=== PATIENT | male | born 1955 | race Caucasian/White ===

== ENCOUNTER 2016-04-16 16:20 | Inpatient (IN) | payer MEDICAID ==
[2016-04-16 17:27] VITALS: BP 126/96
[2016-04-16] MEDS ORDERED: Maalox 30 mL Cup PO PRN (20:55)
[2016-04-16] MEDS ORDERED: guaiFENesin 200 MG/10 ML UDC PO PRN (20:55)
[2016-04-16] MEDS ORDERED: INSULIN ASPART SLIDING SCALE 100 UNITS/ML UNIT SUBQ SCH (21:00)
[2016-04-16] MEDS: Ipratropium Neb 0.5 mg/2.5 mL UD HHN SCH (22:14)
[2016-04-16] MEDS: Albuterol Nebulizer 2.5mg/3mL HHN SCH (22:14)
[2016-04-16] MEDS: INSULIN ASPART, RECOMBINANT 100 UNITS/ML SUBQ SCH (22:39)
[2016-04-16 23:06] LABS: URINE BILIRUBIN NEGATIVE (NEGATIVE); URINE BLOOD NEGATIVE (NEGATIVE); URINE COLOR YELLOW; URINE GLUCOSE (UA) 500 mg/dL (NEGATIVE); URINE KETONE TRACE mg/dL (NEGATIVE); URINE PROTEIN NEGATIVE (NEGATIVE); URINE UROBILINOGEN 0.2 E.U./dL (0.2 - 1.0)
[2016-04-16 23:07] LABS: URINE BACTERIA NONE SEEN /hpf (NONE SEEN); URINE EPITHELIAL CELLS OCCASIONAL /lpf (FEW); URINE RBC 0-2 /hpf (0-5); URINE WBC 0-2 /hpf (0-5)
[2016-04-17 05:33] LABS: % BASOPHILS 0.9 % (0.0-2.0); % EOSINOPHILS 1.1 % (0.0-5.0); % LYMPHOCYTES 34.2 % (20.0-50.0); % MONOCYTES 7.7 % (2.0-10.0); % NEUTROPHILS 56.1 % (40.0-80.0); HEMATOCRIT 42.4 % (39.0-49.0); HEMOGLOBIN 14.8 gm/dL (13.2-17.3); MEAN CELL VOLUME 92.3 fl (80-99); MEAN CORPUSCULAR HEMOGLOBIN 32.1 pg (26.0-30.0); MEAN CORPUSCULAR HGB CONC 34.8 pg (28.0-36.0); MEAN PLATELET VOLUME 8.8 fl; NEUTROPHILE ABSOLUTE 5.5 Th/cmm (1.8-8.0); PLATELET COUNT 268 Th/cmm (150-400); RED CELL DISTRIBUTION WIDTH 12.2 % (11.5-20.0); WHITE BLOOD COUNT 9.9 Th/cmm (4.8-10.8)
[2016-04-17 05:43] LABS: ALKALINE PHOSPHATASE 104 U/L (34-104); BILIRUBIN,TOTAL 0.9 mg/dL (0.3-1.0); BUN - UREA NITROGEN 18 mg/dL (7-25); BUN/CREATININE RATIO 22.5; CALCIUM SERUM 8.6 mg/dL (8.6-10.3); CARBON DIOXIDE 27.6 mEq/L (21.0-31.0); CHLORIDE 97 mEq/L (98-107); CREATININE - SERUM 0.8 mg/dL (0.7-1.3); GLUCOSE 345 mg/dL (70-105); POTASSIUM SERUM 3.6 mEq/L (3.5-5.1); SGOT 201 U/L (13-39); SGPT/ALT 366 U/L (7-52); SODIUM SERUM 130 mEq/L (136-145)
[2016-04-17 05:50] LABS: BNP 5.9 pg/mL (5.0-100.0)
[2016-04-17] MEDS: INSULIN ASPART, RECOMBINANT 100 UNITS/ML SUBQ SCH ×4 (06:40→20:19)
[2016-04-17] MEDS: Albuterol Nebulizer 2.5mg/3mL HHN SCH ×4 (07:32→21:49)
[2016-04-17] MEDS: Ipratropium Neb 0.5 mg/2.5 mL UD HHN SCH ×4 (07:32→21:49)
--- NOTE | 2016-04-17 09:40 | Diagnostic Imaging Report ---
CHEST X-RAY: AP view INDICATION: Pneumonia COMPARISON: None FINDINGS: An azygos fissure is noted. No focal consolidation pleural effusions. Borderline prominent heart is noted. Osseous structures are intact. IMPRESSION: No focal airspace consolidation identified.
--- NOTE | 2016-04-17 12:48 | Internal Medicine Prog Note ---
Internal Medicine Subjective - Subjective Service Date: 04/17/16 ([facility] dictated [id number]) Internal Medicine Objective - Results Result Diagrams: 04/17/16 04:50 04/17/16 04:50 Recent Labs: Laboratory Last Values WBC 9.9 Th/cmm (4.8-10.8) 04/17/16 04:50 RBC 4.60 Mil/cmm (4.30-5.70) 04/17/16 04:50 Hgb 14.8 gm/dL (13.2-17.3) 04/17/16 04:50 Hct 42.4 % (39.0-49.0) 04/17/16 04:50 MCV 92.3 fl (80-99) 04/17/16 04:50 MCH 32.1 pg (26.0-30.0) H 04/17/16 04:50 MCHC Differential 34.8 pg (28.0-36.0) 04/17/16 04:50 RDW 12.2 % (11.5-20.0) 04/17/16 04:50 Plt Count 268 Th/cmm (150-400) 04/17/16 04:50 MPV 8.8 fl 04/17/16 04:50 Neutrophils % 56.1 % (40.0-80.0) 04/17/16 04:50 Lymphocytes % 34.2 % (20.0-50.0) 04/17/16 04:50 Monocytes % 7.7 % (2.0-10.0) 04/17/16 04:50 Eosinophils % 1.1 % (0.0-5.0) 04/17/16 04:50 Basophils % 0.9 % (0.0-2.0) 04/17/16 04:50 Sodium 130 mEq/L (136-145) L 04/17/16 04:50 Potassium 3.6 mEq/L (3.5-5.1) 04/17/16 04:50 Chloride 97 mEq/L (98-107) L 04/17/16 04:50 Carbon Dioxide 27.6 mEq/L (21.0-31.0) 04/17/16 04:50 Anion Gap 9.0 (7.0-16.0) 04/17/16 04:50 BUN 18 mg/dL (7-25) 04/17/16 04:50 Creatinine 0.8 mg/dL (0.7-1.3) 04/17/16 04:50 Est GFR ( Amer) > 60.0 ml/min 04/17/16 04:50 Est GFR (Non-Af Amer) > 60.0 ml/min 04/17/16 04:50 BUN/Creatinine Ratio 22.5 04/17/16 04:50 Glucose 345 mg/dL (70-105) H 04/17/16 04:50 POC Glucose 369 MG/DL (70 - 105) H 04/17/16 05:50 Hemoglobin A1c % 17.0 % (4.0-6.0) H 04/16/16 18:09 Calcium 8.6 mg/dL (8.6-10.3) 04/17/16 04:50 Magnesium 2.0 mg/dL (1.9-2.7) 04/17/16 04:50 Total Bilirubin 0.9 mg/dL (0.3-1.0) 04/17/16 04:50 AST 201 U/L (13-39) H 04/17/16 04:50 ALT 366 U/L (7-52) H 04/17/16 04:50 Alkaline Phosphatase 104 U/L (34-104) 04/17/16 04:50 B-Natriuretic Peptide 5.9 pg/mL (5.0-100.0) 04/17/16 04:50 Total Protein 6.2 gm/dL (6.0-8.3) 04/17/16 04:50 Albumin 3.1 gm/dL (4.2-5.5) L 04/17/16 04:50 Globulin 3.1 gm/dL 04/17/16 04:50 Albumin/Globulin Ratio 1.0 (1.0-1.8) 04/17/16 04:50 TSH 1.33 uIU/ml (0.34-5.60) 04/17/16 04:50 Urine Source CLEAN C 04/16/16 22:30 Urine Color YELLOW 04/16/16 22:30 Urine Clarity CLEAR (CLEAR) 04/16/16 22:30 Urine pH 7.0 04/16/16 22:30 Ur Specific [place] 1.015 (1.005-1.030) 04/16/16 22:30 Urine Protein NEGATIVE mg/dL (NEGATIVE) 04/16/16 22:30 Urine Glucose (UA) 500 mg/dL (NEGATIVE) H 04/16/16 22:30 Urine Ketones TRACE mg/dL (NEGATIVE) 04/16/16 22:30 Urine Blood NEGATIVE (NEGATIVE) 04/16/16 22:30 Urine Nitrate NEGATIVE (NEGATIVE) 04/16/16 22:30 Urine Bilirubin NEGATIVE (NEGATIVE) 04/16/16 22:30 Urine Urobilinogen 0.2 E.U./dL (0.2 - 1.0) 04/16/16 22:30 Ur Leukocyte Esterase NEGATIVE (NEGATIVE) 04/16/16 22:30 Urine RBC 0-2 /hpf (0-5) H 04/16/16 22:30 Urine WBC 0-2 /hpf (0-5) 04/16/16 22:30 Ur Epithelial Cells OCCASIONAL /lpf (FEW) 04/16/16 22:30 Urine Bacteria NONE SEEN /hpf (NONE SEEN) 04/16/16 22:30 - Physical Exam Vitals and I&O: Vital Signs Temp 98.7 F 04/17/16 08:00 Pulse 88 04/17/16 11:22 Resp 20 04/17/16 11:22 BP 150/90 04/17/16 09:01 Pulse Ox 94 04/17/16 11:22 Intake & Output 04/16/16 04/17/16 04/17/16 18:59 06:59 18:59 Intake Total 1500 400 Output Total 2000 Balance -500 400 Weight (lbs) 258 lb Intake: Oral 1500 400 Output: Urine 2000 Other: # Bowel Movements 0 Active Medications: Current Medications Acetaminophen (Tylenol) 650 mg PO Q4HR PRN PRN Reason: Pain or Fever >101 Stop: 06/15/16 20:54 Al Hydrox/Mg Hydrox/Simethicone (Maalox) 30 ml PO Q6HR PRN PRN Reason: Constipation Stop: 06/15/16 20:54 Albuterol Sulfate (Albuterol 2.5mg/3ml Neb Ud) 2.5 mg HHN QIDRT [facility] Stop: 06/15/16 20:59 Last Admin: 04/17/16 11:21 Dose: 2.5 mg Aspirin (Ecotrin) 81 mg PO DAILY [facility] Stop: 06/16/16 08:59 Last Admin: 04/17/16 08:59 Dose: 81 mg Carvedilol (Coreg) 3.125 mg PO BID [facility] Stop: 06/16/16 08:59 Last Admin: 04/17/16 08:59 Dose: 3.125 mg Clonidine HCl (Catapres) 0.1 mg PO Q6HR PRN PRN Reason: SBP GREATER THAN 160 Stop: 06/15/16 20:54 Furosemide (Lasix) 20 mg PO DAILY [facility] Stop: 06/16/16 08:59 Last Admin: 04/17/16 09:00 Dose: 20 mg Glipizide (Glucotrol) 5 mg PO BID [facility] Stop: 06/16/16 08:59 Last Admin: 04/17/16 09:01 Dose: 5 mg Guaifenesin (Robitussin) 200 mg PO Q4HR PRN PRN Reason: Cough or Congestion Stop: 06/15/16 20:54 Heparin Sodium (Porcine) (Heparin) 5,000 units SUBQ Q12HR [facility] Stop: 06/15/16 20:59 Last Admin: 04/17/16 08:59 Dose: 5,000 units Insulin Aspart (Novolog) 0 units SUBQ ACHS [facility] PRN Reason: Protocol Stop: 06/15/16 20:59 Last Admin: 04/17/16 06:40 Dose: 8 units Ipratropium [place] (Atrovent Neb 0.5mg/2.5ml) 0.5 mg HHN QIDRT [facility] Stop: 06/15/16 20:59 Last Admin: 04/17/16 11:21 Dose: 0.5 mg Lisinopril (Zestril) 5 mg PO DAILY [facility] Stop: 06/16/16 08:59 Last Admin: 04/17/16 09:01 Dose: 5 mg Meclizine HCl (Antivert) 25 mg PO DAILY PRN PRN Reason: Nausea / Vomiting Stop: 06/15/16 20:54 Metformin HCl (Glucophage) 850 mg PO BIDWM [facility] Stop: 06/16/16 07:59 Last Admin: 04/17/16 08:30 Dose: 850 mg Ondansetron HCl (Zofran) 4 mg IV Q8H PRN PRN Reason: Nausea / Vomiting Stop: 06/15/16 20:54 Zolpidem Tartrate (Ambien) 10 mg PO HS PRN PRN Reason: Insomnia Stop: 06/15/16 20:54 Internal Medicine Assmt/Plan - Assessment Assessment: UNCONTROLLED DIABETES COPD EXACERBATION CHF MORBID OBESITY
[2016-04-17] MEDS ORDERED: VTE Chemical Prophylaxis Screen/Admission MC PRN (13:30)
--- NOTE | 2016-04-17 13:56 | History & Physical ---
CHIEF COMPLAINT: Shortness of breath. HISTORY OF PRESENT ILLNESS: This is a 60-year-old male who is a direct admission from [facility]. According to the patient, he has been having a 2-day history of shortness of breath associated with productive cough. The patient states that lately he has been drinking a lot of fluids. The patient states that he was also seen by his PCP last week and was also referred to [facility] ER. Due to insurance purposes, the patient is now here at [facility] to be treated. PAST MEDICAL HISTORY: Diabetes, hep C and CHF. PAST SURGICAL HISTORY: None per patient. ALLERGIES: No drug allergies. SOCIAL HISTORY: The patient states that he smokes tobacco occasionally. Denies any alcohol. Denies any illicit drug usage. REVIEW OF SYSTEMS: GENERAL: Denies any fever, any chills. CARDIOVASCULAR: Denies any chest pain or any palpitations. RESPIRATORY: Denies any shortness of breath, but admits to productive cough, but denies any wheezing. SKIN: Intact, warm and dry to touch. GASTROINTESTINAL: Denies any nausea, vomiting or any diarrhea, abdominal pain. GENITOURINARY: He denies any dysuria. All other systems are reviewed by me and are negative. PHYSICAL EXAMINATION: GENERAL: The patient is morbidly obese, awake and alert in no apparent distress. VITAL SIGNS: Temperature 98.7, heart rate 91, blood pressure 150/90, respirations 18, O2 92%. HEENT: Head; normocephalic, atraumatic. NECK: Supple. No mass. LUNGS: Scattered rhonchi bilaterally upon auscultation. HEART: Regular rhythm. No murmurs or gallops. ABDOMEN: Soft, nontender, nondistended. Positive bowel sounds in all 4 quadrants. LABORATORY DATA: WBC 9.9, H and H ____ and 42.4, platelets 268. Sodium 130, potassium 3.6, chloride 97, BUN 18, creatinine 0.8. Glucose 345. Hemoglobin A1c is 17.0. The patient had a urinalysis done and it was negative for any UTI. DIAGNOTICS: The patient had a chest x-ray done and the impression is no focal airspace consolidation identified. ASSESSMENT: Uncontrolled diabetes, chronic obstructive pulmonary disease exacerbation, hyponatremia, morbidly obese, congestive heart failure exacerbation. PLAN: The patient to be admitted to the telemetry unit. The patient to have a consultation with Dr. Rod Somers. A 2D will be ordered. The patient will be kept on a low-calorie and low cholesterol diet. Also, Dr. Mendoza will be on the case. We will monitor the patient's glucose level. The patient will be on IV antibiotics for his COPD exacerbation. We will continue to monitor the patient. JOB# [id number]
[2016-04-17] MEDS: Insulin Detemir 100 units/mL 10mL Vial SUBQ SCH (15:00)
[2016-04-17] MEDS: Potassium Chloride 10 mEq ER Tab PO SCH (17:06)
--- NOTE | 2016-04-17 21:59 | Cardiology ---
Patient of Dr. Suarez. M-MODE ECHOCARDIOGRAM: Mitral Valve: Anterior leaflet of the mitral valve shows decreased excursion, EF velocity. Posterior leaflet of the mitral valve shows decreased excursion. Left ventricular posterior wall shows increased thickness, decreased excursion. Interventricular septum shows increased thickness, decreased excursion, ejection fraction 22%. Left atrium enlarged 4.4 cm. Aortic root shows normal dimension, normal excursion of aortic leaflets. CONCLUSION: Cardiomyopathy, ejection fraction 22%. 2D ECHO: Long axis view shows enlarged left ventricular cavity with decreased ejection fraction. Mitral valve shows decreased excursion, left atrium enlarged. Aortic root shows normal dimension, normal excursion of aortic leaflets. Short axis view of mitral valve normal. Short axis view of aortic valve normal. Apical four-chamber view shows enlarged left ventricular cavity with decreased ejection fraction. Left atrium enlarged. Right ventricular cavity, right atrium normal. No pericardial effusion. CONCLUSION: Cardiomyopathy, ejection fraction 22%, minimal hypertrophy of the left ventricle, left atrial enlargement, right ventricular systolic pressure 20 mmHg, trace tricuspid regurgitation, mild mitral regurgitation. [facility]# [id number]
[2016-04-18 05:05] LABS: % EOSINOPHILS 0.6 % (0.0-5.0); % LYMPHOCYTES 31.7 % (20.0-50.0); % MONOCYTES 3.6 % (2.0-10.0); % NEUTROPHILS 64.1 % (40.0-80.0); HEMATOCRIT 45.1 % (39.0-49.0); HEMOGLOBIN 15.4 gm/dL (13.2-17.3); MEAN CELL VOLUME 92.3 fl (80-99); MEAN CORPUSCULAR HEMOGLOBIN 31.5 pg (26.0-30.0); MEAN CORPUSCULAR HGB CONC 34.1 pg (28.0-36.0); MEAN PLATELET VOLUME 10.1 fl; RED BLOOD COUNT 4.88 Mil/cmm (4.30-5.70); RED CELL DISTRIBUTION WIDTH 11.9 % (11.5-20.0); WHITE BLOOD COUNT 9.3 Th/cmm (4.8-10.8)
[2016-04-18 05:17] LABS: PLATELET COUNT 194 Th/cmm (150-400)
[2016-04-18 05:27] LABS: ALKALINE PHOSPHATASE 89 U/L (34-104); ANION GAP 7.7 (7.0-16.0); BILIRUBIN,TOTAL 0.9 mg/dL (0.3-1.0); BUN - UREA NITROGEN 16 mg/dL (7-25); BUN/CREATININE RATIO 22.9; CALCIUM SERUM 8.9 mg/dL (8.6-10.3); CARBON DIOXIDE 29.9 mEq/L (21.0-31.0); CHLORIDE 97 mEq/L (98-107); CREATININE - SERUM 0.7 mg/dL (0.7-1.3); GLUCOSE 271 mg/dL (70-105); POTASSIUM SERUM 3.6 mEq/L (3.5-5.1); SGOT 296 U/L (13-39); SGPT/ALT 476 U/L (7-52); SODIUM SERUM 131 mEq/L (136-145)
[2016-04-18 05:37] LABS: BNP 9.1 pg/mL (5.0-100.0)
[2016-04-18] MEDS: INSULIN ASPART, RECOMBINANT 100 UNITS/ML SUBQ SCH ×4 (06:31→21:41)
--- NOTE | 2016-04-18 07:09 | Consultation ---
The patient of Dr. Suarez. HISTORY AND PHYSICAL: This 60-year-old male patient who was seen at [facility] because of shortness of breath, which gradually deteriorated. The patient apparently has been noncompliant with the fluids and the patient is seen in the Emergency Room for congestive heart failure. The patient was transferred here due to insurance reasons. PAST MEDICAL HISTORY: Cardiomyopathy, hypertension, diabetes mellitus type 2, insulin-dependent diabetes mellitus, hepatitis C, cardiomyopathy, congestive heart failure, and obesity. FAMILY HISTORY: Unremarkable. SOCIAL HISTORY: The patient smokes about half a pack a day. No history of alcohol or substance abuse. ALLERGIES: None. PHYSICAL EXAMINATION: VITAL SIGNS: Blood pressure 130/80, pulse 70, and respirations 20. HEAD: Normocephalic. No lumps or bumps. EYES: Pupils are equal and reactive to light. Fundi show AV nicking, sclerae white, and conjunctivae pink. NECK: Carotid 2+. Normal upstroke. JVD 10 cm above the sternal angle. Thyroid not palpable. Lymph nodes not palpable. CHEST: Shows increased AP diameter. No kyphosis or scoliosis. LUNGS: Bilateral rales. Decreased breath sounds in both the bases. HEART: PMI in sixth intercostal space with lateral to midclavicular line. S1, S2, S3, S4, systolic murmur, grade 2/6, lower left sternal border without radiation. ABDOMEN: Soft. Liver and spleen not palpable. No organomegaly. Bowel sounds active. NEUROLOGIC: Unremarkable. EXTREMITIES: Peripheral pulses 2+. No pedal edema. CLINICAL IMPRESSION: Congestive heart failure; systolic dysfunction, acute on chronic; cardiomyopathy; diabetes mellitus type 2; uncontrolled insulin-dependent diabetes mellitus, , hepatitis C, and obesity. PLAN: Admit the patient. We will continue on insulin, controlled blood sugar. Echocardiogram showed ejection fraction of 22%. The patient to continue present care. The patient eventually needs an AICD. JOB# [id number]
[2016-04-18] MEDS: Albuterol Nebulizer 2.5mg/3mL HHN SCH ×4 (07:52→19:16)
[2016-04-18] MEDS: Ipratropium Neb 0.5 mg/2.5 mL UD HHN SCH ×4 (07:52→19:16)
[2016-04-18] MEDS: Potassium Chloride 10 mEq ER Tab PO SCH (08:56)
[2016-04-18] MEDS: Insulin Detemir 100 units/mL 10mL Vial SUBQ SCH (08:59)
[2016-04-18 14:14] LABS: FOLIC ACID 13.8 ng/mL (>3.0)
--- NOTE | 2016-04-18 16:45 | Internal Medicine Prog Note ---
Internal Medicine Subjective - Subjective Service Date: 04/18/16 Patient seen and examined:: with staff Patient is:: awake Per staff patient is:: no adverse event Internal Medicine Objective - Results Result Diagrams: 04/18/16 04:22 04/18/16 04:22 Recent Labs: Laboratory Last Values WBC 9.3 Th/cmm (4.8-10.8) 04/18/16 04:22 RBC 4.88 Mil/cmm (4.30-5.70) 04/18/16 04:22 Hgb 15.4 gm/dL (13.2-17.3) 04/18/16 04:22 Hct 45.1 % (39.0-49.0) 04/18/16 04:22 MCV 92.3 fl (80-99) 04/18/16 04:22 MCH 31.5 pg (26.0-30.0) H 04/18/16 04:22 MCHC Differential 34.1 pg (28.0-36.0) 04/18/16 04:22 RDW 11.9 % (11.5-20.0) 04/18/16 04:22 Plt Count 194 Th/cmm (150-400) D 04/18/16 04:22 MPV 10.1 fl 04/18/16 04:22 Neutrophils % 64.1 % (40.0-80.0) 04/18/16 04:22 Lymphocytes % 31.7 % (20.0-50.0) 04/18/16 04:22 Monocytes % 3.6 % (2.0-10.0) 04/18/16 04:22 Eosinophils % 0.6 % (0.0-5.0) 04/18/16 04:22 Basophils % 0.0 % (0.0-2.0) 04/18/16 04:22 Sodium 131 mEq/L (136-145) L 04/18/16 04:22 Potassium 3.6 mEq/L (3.5-5.1) 04/18/16 04:22 Chloride 97 mEq/L (98-107) L 04/18/16 04:22 Carbon Dioxide 29.9 mEq/L (21.0-31.0) 04/18/16 04:22 Anion Gap 7.7 (7.0-16.0) 04/18/16 04:22 BUN 16 mg/dL (7-25) 04/18/16 04:22 Creatinine 0.7 mg/dL (0.7-1.3) 04/18/16 04:22 Est GFR ( Amer) > 60.0 ml/min 04/18/16 04:22 Est GFR (Non-Af Amer) > 60.0 ml/min 04/18/16 04:22 BUN/Creatinine Ratio 22.9 04/18/16 04:22 Glucose 271 mg/dL (70-105) H 04/18/16 04:22 POC Glucose 307 MG/DL (70 - 105) H 04/18/16 12:20 Hemoglobin A1c % 17.0 % (4.0-6.0) H 04/16/16 18:09 Calcium 8.9 mg/dL (8.6-10.3) 04/18/16 04:22 Magnesium 2.0 mg/dL (1.9-2.7) 04/17/16 04:50 Total Bilirubin 0.9 mg/dL (0.3-1.0) 04/18/16 04:22 AST 296 U/L (13-39) H 04/18/16 04:22 ALT 476 U/L (7-52) H 04/18/16 04:22 Alkaline Phosphatase 89 U/L (34-104) 04/18/16 04:22 B-Natriuretic Peptide 9.1 pg/mL (5.0-100.0) 04/18/16 04:22 Total Protein 6.5 gm/dL (6.0-8.3) 04/18/16 04:22 Albumin 3.2 gm/dL (4.2-5.5) L 04/18/16 04:22 Globulin 3.3 gm/dL 04/18/16 04:22 Albumin/Globulin Ratio 1.0 (1.0-1.8) 04/18/16 04:22 Vitamin B12 666 pg/mL (211-946) 04/17/16 04:50 Folic Acid 13.8 ng/mL (>3.0) 04/17/16 04:50 TSH 1.33 uIU/ml (0.34-5.60) 04/17/16 04:50 Urine Source CLEAN C 04/16/16 22:30 Urine Color YELLOW 04/16/16 22:30 Urine Clarity CLEAR (CLEAR) 04/16/16 22:30 Urine pH 7.0 04/16/16 22:30 Ur Specific [place] 1.015 (1.005-1.030) 04/16/16 22:30 Urine Protein NEGATIVE mg/dL (NEGATIVE) 04/16/16 22:30 Urine Glucose (UA) 500 mg/dL (NEGATIVE) H 04/16/16 22:30 Urine Ketones TRACE mg/dL (NEGATIVE) 04/16/16 22:30 Urine Blood NEGATIVE (NEGATIVE) 04/16/16 22:30 Urine Nitrate NEGATIVE (NEGATIVE) 04/16/16 22:30 Urine Bilirubin NEGATIVE (NEGATIVE) 04/16/16 22:30 Urine Urobilinogen 0.2 E.U./dL (0.2 - 1.0) 04/16/16 22:30 Ur Leukocyte Esterase NEGATIVE (NEGATIVE) 04/16/16 22:30 Urine RBC 0-2 /hpf (0-5) H 04/16/16 22:30 Urine WBC 0-2 /hpf (0-5) 04/16/16 22:30 Ur Epithelial Cells OCCASIONAL /lpf (FEW) 04/16/16 22:30 Urine Bacteria NONE SEEN /hpf (NONE SEEN) 04/16/16 22:30 - Physical Exam Vitals and I&O: Vital Signs Temp 97.6 F 04/18/16 15:00 Pulse 80 04/18/16 15:27 Resp 19 04/18/16 15:27 BP 120/75 04/18/16 15:00 Pulse Ox 96 04/18/16 15:27 Intake & Output 04/17/16 04/18/16 04/18/16 18:59 06:59 18:59 Intake Total 3200 1500 500 Output Total 2200 2300 800 Balance 1000 -800 -300 Intake: Oral 3200 1500 500 Output: Urine 2200 2300 800 Other: # Bowel Movements 0 0 Active Medications: Current Medications Acetaminophen (Tylenol) 650 mg PO Q4HR PRN PRN Reason: Pain or Fever >101 Stop: 06/15/16 20:54 Last Admin: 04/17/16 23:41 Dose: 650 mg Al Hydrox/Mg Hydrox/Simethicone (Maalox) 30 ml PO Q6HR PRN PRN Reason: Constipation Stop: 06/15/16 20:54 Albuterol Sulfate (Albuterol 2.5mg/3ml Neb Ud) 2.5 mg HHN QIDRT [facility] Stop: 06/15/16 20:59 Last Admin: 04/18/16 15:13 Dose: 2.5 mg Aspirin (Ecotrin) 81 mg PO DAILY [facility] Stop: 06/16/16 08:59 Last Admin: 04/18/16 08:58 Dose: 81 mg Carvedilol (Coreg) 6.25 mg PO BID [facility] Stop: 06/16/16 12:45 Last Admin: 04/18/16 08:58 Dose: 6.25 mg Clonidine HCl (Catapres) 0.1 mg PO Q6HR PRN PRN Reason: SBP GREATER THAN 160 Stop: 06/15/16 20:54 Furosemide (Lasix) 40 mg IVP DAILY [facility] Stop: 06/17/16 08:59 Last Admin: 04/18/16 08:55 Dose: 40 mg Glipizide (Glucotrol) 10 mg PO BID [facility] Stop: 06/17/16 16:59 Guaifenesin (Robitussin) 200 mg PO Q4HR PRN PRN Reason: Cough or Congestion Stop: 06/15/16 20:54 Heparin Sodium (Porcine) (Heparin) 5,000 units SUBQ Q12HR [facility] Stop: 06/15/16 20:59 Last Admin: 04/18/16 08:59 Dose: 5,000 units Insulin Aspart (Novolog) 0 units SUBQ ACHS [facility] PRN Reason: Protocol Stop: 06/15/16 20:59 Last Admin: 04/18/16 12:21 Dose: 6 units Insulin Detemir (Levemir Insulin) 20 units SUBQ DAILY [facility] PRN Reason: Protocol Stop: 06/16/16 14:59 Last Admin: 04/18/16 08:59 Dose: 20 units Ipratropium [place] (Atrovent Neb 0.5mg/2.5ml) 0.5 mg HHN QIDRT [facility] Stop: 06/15/16 20:59 Last Admin: 04/18/16 15:13 Dose: 0.5 mg Lisinopril (Zestril) 10 mg PO DAILY [facility] Stop: 06/16/16 12:45 Last Admin: 04/18/16 08:57 Dose: 10 mg Meclizine HCl (Antivert) 25 mg PO DAILY PRN PRN Reason: Nausea / Vomiting Stop: 06/15/16 20:54 Metformin HCl (Glucophage) 850 mg PO BIDWM [facility] Stop: 06/16/16 07:59 Last Admin: 04/18/16 08:56 Dose: 850 mg Miscellaneous ([employer] Prophylaxis Screen/ Admission) 1 ea [facility] PRN PRN PRN Reason: PROTOCOL Stop: 06/16/16 13:29 Ondansetron HCl (Zofran) 4 mg IV Q8H PRN PRN Reason: Nausea / Vomiting Stop: 06/15/16 20:54 Potassium Chloride (Klor-Con) 10 meq PO DAILY [facility] Stop: 06/16/16 17:59 Last Admin: 04/18/16 08:56 Dose: 10 meq Zolpidem Tartrate (Ambien) 10 mg PO HS PRN PRN Reason: Insomnia Stop: 06/15/16 20:54 General: alert HEENT: NC/AT, PERRLA Neck: Supple Lungs: CTAB Cardiovascular: RRR, Normal S1, Normal S2, without murmur Abdomen: soft non-tender Internal Medicine Assmt/Plan - Assessment Assessment: UNCONTROLLED DIABETES COPD EXACERBATION CHF MORBID OBESITY - Plan Plan: DR. COFFMAN CONSULT MONITOR GLUCOSE PHLEBOTOMY MANAGER CBC/BMP IN AM
[2016-04-19 05:46] LABS: % BASOPHILS 2.6 % (0.0-2.0); % EOSINOPHILS 1.1 % (0.0-5.0); % LYMPHOCYTES 36.4 % (20.0-50.0); % MONOCYTES 4.9 % (2.0-10.0); HEMATOCRIT 42.7 % (39.0-49.0); HEMOGLOBIN 14.9 gm/dL (13.2-17.3); MEAN CELL VOLUME 91.7 fl (80-99); MEAN CORPUSCULAR HEMOGLOBIN 32.1 pg (26.0-30.0); MEAN PLATELET VOLUME 8.9 fl; NEUTROPHILE ABSOLUTE 4.8 Th/cmm (1.8-8.0); RED BLOOD COUNT 4.66 Mil/cmm (4.30-5.70); RED CELL DISTRIBUTION WIDTH 12.1 % (11.5-20.0); WHITE BLOOD COUNT 8.6 Th/cmm (4.8-10.8)
[2016-04-19 05:57] LABS: ANION GAP 8.7 (7.0-16.0); BUN - UREA NITROGEN 17 mg/dL (7-25); BUN/CREATININE RATIO 21.3; CALCIUM SERUM 9.1 mg/dL (8.6-10.3); CARBON DIOXIDE 27.7 mEq/L (21.0-31.0); CHLORIDE 97 mEq/L (98-107); CREATININE - SERUM 0.8 mg/dL (0.7-1.3); GLUCOSE 233 mg/dL (70-105); PLATELET COUNT 274 Th/cmm (150-400); POTASSIUM SERUM 3.4 mEq/L (3.5-5.1); SODIUM SERUM 130 mEq/L (136-145)
[2016-04-19] MEDS: INSULIN ASPART, RECOMBINANT 100 UNITS/ML SUBQ SCH ×4 (06:43→21:06)
[2016-04-19] MEDS: Ipratropium Neb 0.5 mg/2.5 mL UD HHN SCH ×4 (07:31→19:33)
[2016-04-19] MEDS: Albuterol Nebulizer 2.5mg/3mL HHN SCH ×4 (07:31→19:33)
[2016-04-19] MEDS: Insulin Detemir 100 units/mL 10mL Vial SUBQ SCH (08:56)
[2016-04-19] MEDS: Potassium Chloride 10 mEq ER Tab PO SCH (10:57)
[2016-04-19] MEDS ORDERED: Potassium Chloride 20 mEq ER Tab PO ONE (16:22)
--- NOTE | 2016-04-19 16:47 | Internal Medicine Prog Note ---
Internal Medicine Subjective - Subjective Service Date: 04/19/16 Patient seen and examined:: with staff Patient is:: awake Per staff patient is:: no adverse event Internal Medicine Objective - Results Result Diagrams: 04/19/16 04:50 04/19/16 04:50 Recent Labs: Laboratory Last Values WBC 8.6 Th/cmm (4.8-10.8) 04/19/16 04:50 RBC 4.66 Mil/cmm (4.30-5.70) 04/19/16 04:50 Hgb 14.9 gm/dL (13.2-17.3) 04/19/16 04:50 Hct 42.7 % (39.0-49.0) 04/19/16 04:50 MCV 91.7 fl (80-99) 04/19/16 04:50 MCH 32.1 pg (26.0-30.0) H 04/19/16 04:50 MCHC Differential 35.0 pg (28.0-36.0) 04/19/16 04:50 RDW 12.1 % (11.5-20.0) 04/19/16 04:50 Plt Count 274 Th/cmm (150-400) D 04/19/16 04:50 MPV 8.9 fl 04/19/16 04:50 Neutrophils % 55.0 % (40.0-80.0) 04/19/16 04:50 Lymphocytes % 36.4 % (20.0-50.0) 04/19/16 04:50 Monocytes % 4.9 % (2.0-10.0) 04/19/16 04:50 Eosinophils % 1.1 % (0.0-5.0) 04/19/16 04:50 Basophils % 2.6 % (0.0-2.0) H 04/19/16 04:50 Sodium 130 mEq/L (136-145) L 04/19/16 04:50 Potassium 3.4 mEq/L (3.5-5.1) L 04/19/16 04:50 Chloride 97 mEq/L (98-107) L 04/19/16 04:50 Carbon Dioxide 27.7 mEq/L (21.0-31.0) 04/19/16 04:50 Anion Gap 8.7 (7.0-16.0) 04/19/16 04:50 BUN 17 mg/dL (7-25) 04/19/16 04:50 Creatinine 0.8 mg/dL (0.7-1.3) 04/19/16 04:50 Est GFR ( Amer) > 60.0 ml/min 04/19/16 04:50 Est GFR (Non-Af Amer) > 60.0 ml/min 04/19/16 04:50 BUN/Creatinine Ratio 21.3 04/19/16 04:50 Glucose 233 mg/dL (70-105) H 04/19/16 04:50 POC Glucose 284 MG/DL (70 - 105) H 04/19/16 05:37 Hemoglobin A1c % 17.0 % (4.0-6.0) H 04/16/16 18:09 Calcium 9.1 mg/dL (8.6-10.3) 04/19/16 04:50 Magnesium 2.0 mg/dL (1.9-2.7) 04/17/16 04:50 Total Bilirubin 0.9 mg/dL (0.3-1.0) 04/18/16 04:22 AST 296 U/L (13-39) H 04/18/16 04:22 ALT 476 U/L (7-52) H 04/18/16 04:22 Alkaline Phosphatase 89 U/L (34-104) 04/18/16 04:22 B-Natriuretic Peptide 9.1 pg/mL (5.0-100.0) 04/18/16 04:22 Total Protein 6.5 gm/dL (6.0-8.3) 04/18/16 04:22 Albumin 3.2 gm/dL (4.2-5.5) L 04/18/16 04:22 Globulin 3.3 gm/dL 04/18/16 04:22 Albumin/Globulin Ratio 1.0 (1.0-1.8) 04/18/16 04:22 Vitamin B12 666 pg/mL (211-946) 04/17/16 04:50 Folic Acid 13.8 ng/mL (>3.0) 04/17/16 04:50 TSH 1.33 uIU/ml (0.34-5.60) 04/17/16 04:50 Urine Source CLEAN C 04/16/16 22:30 Urine Color YELLOW 04/16/16 22:30 Urine Clarity CLEAR (CLEAR) 04/16/16 22:30 Urine pH 7.0 04/16/16 22:30 Ur Specific [place] 1.015 (1.005-1.030) 04/16/16 22:30 Urine Protein NEGATIVE mg/dL (NEGATIVE) 04/16/16 22:30 Urine Glucose (UA) 500 mg/dL (NEGATIVE) H 04/16/16 22:30 Urine Ketones TRACE mg/dL (NEGATIVE) 04/16/16 22:30 Urine Blood NEGATIVE (NEGATIVE) 04/16/16 22:30 Urine Nitrate NEGATIVE (NEGATIVE) 04/16/16 22:30 Urine Bilirubin NEGATIVE (NEGATIVE) 04/16/16 22:30 Urine Urobilinogen 0.2 E.U./dL (0.2 - 1.0) 04/16/16 22:30 Ur Leukocyte Esterase NEGATIVE (NEGATIVE) 04/16/16 22:30 Urine RBC 0-2 /hpf (0-5) H 04/16/16 22:30 Urine WBC 0-2 /hpf (0-5) 04/16/16 22:30 Ur Epithelial Cells OCCASIONAL /lpf (FEW) 04/16/16 22:30 Urine Bacteria NONE SEEN /hpf (NONE SEEN) 04/16/16 22:30 - Physical Exam Vitals and I&O: Vital Signs Temp 98.6 F 04/19/16 08:00 Pulse 80 04/19/16 15:53 Resp 20 04/19/16 15:53 BP 114/76 04/19/16 10:56 Pulse Ox 97 04/19/16 15:53 Intake & Output 04/18/16 04/19/16 04/19/16 18:59 06:59 18:59 Intake Total 4000 700 Output Total 3200 800 Balance 800 -100 Intake: Oral 4000 700 Output: Urine 3200 800 Other: # Voids 5 3 # Bowel Movements 0 1 Active Medications: Current Medications Acetaminophen (Tylenol) 650 mg PO Q4HR PRN PRN Reason: Pain or Fever >101 Stop: 06/15/16 20:54 Last Admin: 04/19/16 03:50 Dose: 650 mg Al Hydrox/Mg Hydrox/Simethicone (Maalox) 30 ml PO Q6HR PRN PRN Reason: Constipation Stop: 06/15/16 20:54 Albuterol Sulfate (Albuterol 2.5mg/3ml Neb Ud) 2.5 mg HHN QIDRT [facility] Stop: 06/15/16 20:59 Last Admin: 04/19/16 15:50 Dose: 2.5 mg Aspirin (Ecotrin) 81 mg PO DAILY [facility] Stop: 06/16/16 08:59 Last Admin: 04/19/16 08:55 Dose: 81 mg Carvedilol (Coreg) 6.25 mg PO BID [facility] Stop: 06/16/16 12:45 Last Admin: 04/19/16 08:55 Dose: 6.25 mg Clonidine HCl (Catapres) 0.1 mg PO Q6HR PRN PRN Reason: SBP GREATER THAN 160 Stop: 06/15/16 20:54 Furosemide (Lasix) 40 mg IVP DAILY [facility] Stop: 06/17/16 08:59 Last Admin: 04/19/16 08:55 Dose: 40 mg Glipizide (Glucotrol) 10 mg PO BID [facility] Stop: 06/17/16 16:59 Last Admin: 04/19/16 08:54 Dose: 10 mg Guaifenesin (Robitussin) 200 mg PO Q4HR PRN PRN Reason: Cough or Congestion Stop: 06/15/16 20:54 Last Admin: 04/19/16 03:50 Dose: 200 mg Heparin Sodium (Porcine) (Heparin) 5,000 units SUBQ Q12HR [facility] Stop: 06/15/16 20:59 Last Admin: 04/19/16 08:56 Dose: 5,000 units Insulin Aspart (Novolog) 0 units SUBQ ACHS [facility] PRN Reason: Protocol Stop: 06/15/16 20:59 Last Admin: 04/19/16 11:52 Dose: 10 units Insulin Detemir (Levemir Insulin) 20 units SUBQ DAILY [facility] PRN Reason: Protocol Stop: 06/16/16 14:59 Last Admin: 04/19/16 08:56 Dose: 20 units Ipratropium [place] (Atrovent Neb 0.5mg/2.5ml) 0.5 mg HHN QIDRT [facility] Stop: 06/15/16 20:59 Last Admin: 04/19/16 15:50 Dose: 0.5 mg Lisinopril (Zestril) 10 mg PO DAILY [facility] Stop: 06/16/16 12:45 Last Admin: 04/19/16 10:56 Dose: 10 mg Meclizine HCl (Antivert) 25 mg PO DAILY PRN PRN Reason: Nausea / Vomiting Stop: 06/15/16 20:54 Metformin HCl (Glucophage) 850 mg PO TIDWM [facility] Stop: 06/18/16 07:59 Last Admin: 04/19/16 15:03 Dose: 850 mg Miscellaneous (Vte Chemical Prophylaxis Screen/ Admission) 1 ea [facility] PRN PRN PRN Reason: PROTOCOL Stop: 06/16/16 13:29 Ondansetron HCl (Zofran) 4 mg IV Q8H PRN PRN Reason: Nausea / Vomiting Stop: 06/15/16 20:54 Potassium Chloride (Klor-Con) 10 meq PO DAILY [facility] Stop: 06/16/16 17:59 Last Admin: 04/19/16 10:57 Dose: 10 meq Zolpidem Tartrate (Ambien) 10 mg PO HS PRN PRN Reason: Insomnia Stop: 06/15/16 20:54 General: alert HEENT: NC/AT Neck: Supple Lungs: CTAB Cardiovascular: RRR, Normal S1, Normal S2, without murmur Abdomen: soft non-tender Internal Medicine Assmt/Plan - Assessment Assessment: UNCONTROLLED DIABETES COPD EXACERBATION CHF MORBID OBESITY - Plan Plan: EDUCATED PATIENT IMPORTANCE OF COMPLYING WITH MEDICATION AND DIET. 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
[2016-04-20 05:06] LABS: % EOSINOPHILS 0.8 % (0.0-5.0); % LYMPHOCYTES 29.5 % (20.0-50.0); % NEUTROPHILS 63.7 % (40.0-80.0); HEMOGLOBIN 14.8 gm/dL (13.2-17.3); MEAN CELL VOLUME 92.5 fl (80-99); MEAN CORPUSCULAR HEMOGLOBIN 31.9 pg (26.0-30.0); MEAN CORPUSCULAR HGB CONC 34.5 pg (28.0-36.0); MEAN PLATELET VOLUME 8.9 fl; NEUTROPHILE ABSOLUTE 5.5 Th/cmm (1.8-8.0); PLATELET COUNT 230 Th/cmm (150-400); RED BLOOD COUNT 4.64 Mil/cmm (4.30-5.70); RED CELL DISTRIBUTION WIDTH 12.2 % (11.5-20.0); WHITE BLOOD COUNT 8.7 Th/cmm (4.8-10.8)
[2016-04-20 05:22] LABS: ALKALINE PHOSPHATASE 95 U/L (34-104); ANION GAP 7.1 (7.0-16.0); BILIRUBIN,TOTAL 0.9 mg/dL (0.3-1.0); BUN - UREA NITROGEN 16 mg/dL (7-25); BUN/CREATININE RATIO 22.9; CALCIUM SERUM 9.4 mg/dL (8.6-10.3); CARBON DIOXIDE 26.3 mEq/L (21.0-31.0); CHLORIDE 101 mEq/L (98-107); CREATININE - SERUM 0.7 mg/dL (0.7-1.3); GLUCOSE 244 mg/dL (70-105); POTASSIUM SERUM 4.4 mEq/L (3.5-5.1); SGOT 199 U/L (13-39); SGPT/ALT 437 U/L (7-52); SODIUM SERUM 130 mEq/L (136-145)
[2016-04-20 05:23] LABS: ALB/GLOB RATIO 1.1 (1.0-1.8); BILIRUBIN,DIRECT 0.33 mg/dL (0.0-0.2); BILIRUBIN,TOTAL 0.9 mg/dL (0.3-1.0)
[2016-04-20 05:24] LABS: CHOLESTEROL 170 mg/dL (<200); TRIGLYCERIDES 125 mg/dL (<150)
[2016-04-20 05:25] LABS: MAGNESIUM 1.9 mg/dL (1.9-2.7); PHOSPHOROUS 3.7 mg/dL (2.5-5.0)
[2016-04-20] MEDS: INSULIN ASPART, RECOMBINANT 100 UNITS/ML SUBQ SCH ×4 (06:55→20:12)
[2016-04-20] MEDS: Ipratropium Neb 0.5 mg/2.5 mL UD HHN SCH ×4 (07:05→19:09)
[2016-04-20] MEDS: Albuterol Nebulizer 2.5mg/3mL HHN SCH ×4 (07:05→19:09)
[2016-04-20] MEDS: Potassium Chloride 10 mEq ER Tab PO SCH (08:55)
[2016-04-20] MEDS: Insulin Detemir 100 units/mL 10mL Vial SUBQ SCH (08:58)
--- NOTE | 2016-04-20 12:12 | Internal Medicine Prog Note ---
Internal Medicine Subjective - Subjective Service Date: 04/20/16 Patient seen and examined:: with staff Patient is:: awake Per staff patient is:: no adverse event Internal Medicine Objective - Results Result Diagrams: 04/20/16 04:45 04/20/16 04:45 Recent Labs: Laboratory Last Values WBC 8.7 Th/cmm (4.8-10.8) 04/20/16 04:45 RBC 4.64 Mil/cmm (4.30-5.70) 04/20/16 04:45 Hgb 14.8 gm/dL (13.2-17.3) 04/20/16 04:45 Hct 43.0 % (39.0-49.0) 04/20/16 04:45 MCV 92.5 fl (80-99) 04/20/16 04:45 MCH 31.9 pg (26.0-30.0) H 04/20/16 04:45 MCHC Differential 34.5 pg (28.0-36.0) 04/20/16 04:45 RDW 12.2 % (11.5-20.0) 04/20/16 04:45 Plt Count 230 Th/cmm (150-400) 04/20/16 04:45 MPV 8.9 fl 04/20/16 04:45 Neutrophils % 63.7 % (40.0-80.0) 04/20/16 04:45 Lymphocytes % 29.5 % (20.0-50.0) 04/20/16 04:45 Monocytes % 6.0 % (2.0-10.0) 04/20/16 04:45 Eosinophils % 0.8 % (0.0-5.0) 04/20/16 04:45 Basophils % 0.0 % (0.0-2.0) 04/20/16 04:45 Sodium 130 mEq/L (136-145) L 04/20/16 04:45 Potassium 4.4 mEq/L (3.5-5.1) 04/20/16 04:45 Chloride 101 mEq/L (98-107) 04/20/16 04:45 Carbon Dioxide 26.3 mEq/L (21.0-31.0) 04/20/16 04:45 Anion Gap 7.1 (7.0-16.0) 04/20/16 04:45 BUN 16 mg/dL (7-25) 04/20/16 04:45 Creatinine 0.7 mg/dL (0.7-1.3) 04/20/16 04:45 Est GFR ( Amer) > 60.0 ml/min 04/20/16 04:45 Est GFR (Non-Af Amer) > 60.0 ml/min 04/20/16 04:45 BUN/Creatinine Ratio 22.9 04/20/16 04:45 Glucose 244 mg/dL (70-105) H 04/20/16 04:45 POC Glucose 223 MG/DL (70 - 105) H 04/20/16 06:45 Hemoglobin A1c % 17.0 % (4.0-6.0) H 04/16/16 18:09 Uric Acid 3.9 mg/dL (4.4-7.6) L 04/20/16 04:45 Calcium 9.4 mg/dL (8.6-10.3) 04/20/16 04:45 Phosphorus 3.7 mg/dL (2.5-5.0) 04/20/16 04:45 Magnesium 1.9 mg/dL (1.9-2.7) 04/20/16 04:45 Total Bilirubin 0.9 mg/dL (0.3-1.0) 04/20/16 04:45 Direct Bilirubin 0.33 mg/dL (0.0-0.2) H 04/20/16 04:45 AST 201 U/L (13-39) H 04/20/16 04:45 ALT 445 U/L (7-52) H 04/20/16 04:45 Alkaline Phosphatase 96 U/L (34-104) 04/20/16 04:45 B-Natriuretic Peptide 9.1 pg/mL (5.0-100.0) 04/18/16 04:22 Total Protein 6.0 gm/dL (6.0-8.3) 04/20/16 04:45 Albumin 3.2 gm/dL (4.2-5.5) L 04/20/16 04:45 Globulin 2.8 gm/dL 04/20/16 04:45 Albumin/Globulin Ratio 1.1 (1.0-1.8) 04/20/16 04:45 Triglycerides 125 mg/dL (<150) 04/20/16 04:45 Cholesterol 170 mg/dL (<200) 04/20/16 04:45 LDL Cholesterol Direct 127 mg/dL (75-193) 04/20/16 04:45 HDL Cholesterol 34 mg/dL (23-92) 04/20/16 04:45 Vitamin B12 666 pg/mL (211-946) 04/17/16 04:50 Folic Acid 13.8 ng/mL (>3.0) 04/17/16 04:50 TSH 1.33 uIU/ml (0.34-5.60) 04/17/16 04:50 Urine Source CLEAN C 04/16/16 22:30 Urine Color YELLOW 04/16/16 22:30 Urine Clarity CLEAR (CLEAR) 04/16/16 22:30 Urine pH 7.0 04/16/16 22:30 Ur Specific [place] 1.015 (1.005-1.030) 04/16/16 22:30 Urine Protein NEGATIVE mg/dL (NEGATIVE) 04/16/16 22:30 Urine Glucose (UA) 500 mg/dL (NEGATIVE) H 04/16/16 22:30 Urine Ketones TRACE mg/dL (NEGATIVE) 04/16/16 22:30 Urine Blood NEGATIVE (NEGATIVE) 04/16/16 22:30 Urine Nitrate NEGATIVE (NEGATIVE) 04/16/16 22:30 Urine Bilirubin NEGATIVE (NEGATIVE) 04/16/16 22:30 Urine Urobilinogen 0.2 E.U./dL (0.2 - 1.0) 04/16/16 22:30 Ur Leukocyte Esterase NEGATIVE (NEGATIVE) 04/16/16 22:30 Urine RBC 0-2 /hpf (0-5) H 04/16/16 22:30 Urine WBC 0-2 /hpf (0-5) 04/16/16 22:30 Ur Epithelial Cells OCCASIONAL /lpf (FEW) 04/16/16 22:30 Urine Bacteria NONE SEEN /hpf (NONE SEEN) 04/16/16 22:30 - Physical Exam Vitals and I&O: Vital Signs Temp 98.3 F 04/20/16 08:00 Pulse 83 04/20/16 11:19 Resp 20 04/20/16 11:19 BP 113/78 04/20/16 08:57 Pulse Ox 97 04/20/16 11:19 Intake & Output 04/19/16 04/20/16 04/20/16 18:59 06:59 18:59 Intake Total 840 500 0 Output Total 980 800 0 Balance -140 -300 0 Intake: Oral 840 500 0 Output: Urine 980 800 0 Stool 0 Other: # Voids 2 1 # Bowel Movements 0 Active Medications: Current Medications Acetaminophen (Tylenol) 650 mg PO Q4HR PRN PRN Reason: Pain or Fever >101 Stop: 06/15/16 20:54 Last Admin: 04/19/16 03:50 Dose: 650 mg Al Hydrox/Mg Hydrox/Simethicone (Maalox) 30 ml PO Q6HR PRN PRN Reason: Constipation Stop: 06/15/16 20:54 Albuterol Sulfate (Albuterol 2.5mg/3ml Neb Ud) 2.5 mg HHN QIDRT [facility] Stop: 06/15/16 20:59 Last Admin: 04/20/16 11:19 Dose: 2.5 mg Aspirin (Ecotrin) 81 mg PO DAILY [facility] Stop: 06/16/16 08:59 Last Admin: 04/20/16 08:56 Dose: 81 mg Carvedilol (Coreg) 6.25 mg PO BID [facility] Stop: 06/16/16 12:45 Last Admin: 04/20/16 08:53 Dose: 6.25 mg Clonidine HCl (Catapres) 0.1 mg PO Q6HR PRN PRN Reason: SBP GREATER THAN 160 Stop: 06/15/16 20:54 Furosemide (Lasix) 40 mg IVP DAILY [facility] Stop: 06/17/16 08:59 Last Admin: 04/20/16 08:57 Dose: 40 mg Glipizide (Glucotrol) 10 mg PO BID [facility] Stop: 06/17/16 16:59 Last Admin: 04/20/16 08:58 Dose: 10 mg Guaifenesin (Robitussin) 200 mg PO Q4HR PRN PRN Reason: Cough or Congestion Stop: 06/15/16 20:54 Last Admin: 04/19/16 03:50 Dose: 200 mg Heparin Sodium (Porcine) (Heparin) 5,000 units SUBQ Q12HR [facility] Stop: 06/15/16 20:59 Last Admin: 04/20/16 08:56 Dose: 5,000 units Insulin Aspart (Novolog) 0 units SUBQ ACHS [facility] PRN Reason: Protocol Stop: 06/15/16 20:59 Last Admin: 04/20/16 06:55 Dose: 2 units Insulin Detemir (Levemir Insulin) 20 units SUBQ DAILY [facility] PRN Reason: Protocol Stop: 06/16/16 14:59 Last Admin: 04/20/16 08:58 Dose: 20 units Ipratropium [place] (Atrovent Neb 0.5mg/2.5ml) 0.5 mg HHN QIDRT [facility] Stop: 06/15/16 20:59 Last Admin: 04/20/16 11:19 Dose: 0.5 mg Lisinopril (Zestril) 10 mg PO DAILY [facility] Stop: 06/16/16 12:45 Last Admin: 04/20/16 08:57 Dose: 10 mg Meclizine HCl (Antivert) 25 mg PO DAILY PRN PRN Reason: Nausea / Vomiting Stop: 06/15/16 20:54 Metformin HCl (Glucophage) 850 mg PO TIDWM [facility] Stop: 06/18/16 07:59 Last Admin: 04/20/16 08:56 Dose: 850 mg Miscellaneous (Vte Chemical Prophylaxis Screen/ Admission) 1 ea [facility] PRN PRN PRN Reason: PROTOCOL Stop: 06/16/16 13:29 Ondansetron HCl (Zofran) 4 mg IV Q8H PRN PRN Reason: Nausea / Vomiting Stop: 06/15/16 20:54 Potassium Chloride (Klor-Con) 10 meq PO DAILY [facility] Stop: 06/16/16 17:59 Last Admin: 04/20/16 08:55 Dose: 10 meq Zolpidem Tartrate (Ambien) 10 mg PO HS PRN PRN Reason: Insomnia Stop: 06/15/16 20:54 General: alert HEENT: NC/AT, PERRLA Neck: Supple Lungs: CTAB Cardiovascular: RRR, Normal S1, Normal S2, without murmur Abdomen: soft non-tender, non-distended, positive bowel sound Internal Medicine Assmt/Plan - Assessment Assessment: UNCONTROLLED DIABETES-NON COMPLIANT COPD EXACERBATION CHF MORBID OBESITY - Plan Plan: MONITOR GLUCOSE LEVEL DC IF OK WITH DR. COFFMAN
[2016-04-20] MEDS ORDERED: Sodium Chloride 0.9% 1,000 ML IV SCH (12:45)
[2016-04-20] MEDS ORDERED: Insulin Detemir 100 units/mL 10mL Vial SUBQ SCH (14:00)
--- NOTE | 2016-04-20 23:09 | Admit Criteria Form ---
Admit Criteria Forms - Admit Criteria Diagnosis: COPD Clinical Indications for Admission to Inpatient Care (Place 'X' for any and all applicable criteria): Admission is indicated for ANY ONE of the following (1)(2)(3): [ X]I. Acute exacerbation by high-risk comorbidity (e.g., pneumonia, dysrhythmia, heart failure, pleural effusion, pneumothorax) or severe underlying COPD (e.g., steroid dependent) [ ]II. Inpatient admission required rather than observation care (see Chronic Obstructive Pulmonary Disease: Observation Care) because of ANY ONE of the following: [ ]a) New or pre-existing signs or symptoms of COPD (eg, dyspnea or Tachypnea at rest or with minimal activity) that persist despite outpatient and observation care treatment [ ]b) New-onset hypoxemia (room air SaO2 less than 90%, PO2 less than 60 mm Hg (8.0 kPa)) that persists despite outpatient and observation care treatment [ ]c) Worsening of pre-existing hypoxemia (eg, new or increased requirement for supplemental oxygen to maintain oxygenation at baseline level) that persists despite outpatient and observation care treatment, with oxygen treatment needs performable only in acute inpatient setting [ ]d) Hypercarbia (PCO2 greater than 40 mm Hg (5.3 kPa))-induced respiratory acidosis (pH less than 7.35) that persists despite outpatient and observation care treatment [ ]e) Supplemental oxygen or respiratory treatments for over 24 hours that are performable only in acute inpatient setting [ ]f) Chest tube placement with active evacuation (e.g., suction, drainage) (5) [ ]g) Other condition, treatment or monitoring requiring inpatient admission [ ]III. Planned invasive surgical or diagnostic procedures requiring acute- care hospitalization [ ]IV. Acute respiratory failure (e.g., uncompensated hypercarbia, severe hypoxemia) [ ]V. Severe comorbid condition (e.g., severe steroid myopathy, acute vertebral fracture) that has acutely worsened pulmonary function [ ]. Confusion state, lethargy, obtundation, stupor or coma Extended stay beyond goal length of stay may be needed for (31)(32): [ ]a ) Respiratory Failure. [ ]b) Severe or persisting hypoxemia or hypercarbia [ ]c) Severe or persistent dyspnea [ ]d) Comorbidities (e.g. chronic heart failure, atrial fibrillation with rapid response, pneumonia) [ ]e) Malnutrition The original [facility] content created by [facility] has been revised. The portions of the content which have been revised are identified through the use of italic text or in bold, and [facility] has neither reviewed nor approved the modified material. All other unmodified content is copyright [facility]. Please see references footnoted in the original [facility] edition 2016 Admit Criteria Met?: Yes
[2016-04-21 05:03] LABS: % EOSINOPHILS 0.6 % (0.0-5.0); % LYMPHOCYTES 34.1 % (20.0-50.0); % MONOCYTES 4.2 % (2.0-10.0); % NEUTROPHILS 61.1 % (40.0-80.0); HEMATOCRIT 42.4 % (39.0-49.0); HEMOGLOBIN 14.6 gm/dL (13.2-17.3); MEAN CELL VOLUME 92.9 fl (80-99); MEAN CORPUSCULAR HEMOGLOBIN 31.9 pg (26.0-30.0); MEAN CORPUSCULAR HGB CONC 34.4 pg (28.0-36.0); MEAN PLATELET VOLUME 8.8 fl; NEUTROPHILE ABSOLUTE 5.4 Th/cmm (1.8-8.0); PLATELET COUNT 273 Th/cmm (150-400); RED BLOOD COUNT 4.56 Mil/cmm (4.30-5.70)
[2016-04-21] MEDS: Ipratropium Neb 0.5 mg/2.5 mL UD HHN SCH ×4 (06:39→20:13)
[2016-04-21] MEDS: Albuterol Nebulizer 2.5mg/3mL HHN SCH ×4 (06:39→20:13)
[2016-04-21] MEDS: INSULIN ASPART, RECOMBINANT 100 UNITS/ML SUBQ SCH ×4 (06:40→20:00)
[2016-04-21] MEDS: Potassium Chloride 10 mEq ER Tab PO SCH (08:39)
[2016-04-21 08:59] LABS: ALKALINE PHOSPHATASE 90 U/L (34-104); ANION GAP 13.5 (7.0-16.0); BILIRUBIN,TOTAL 0.7 mg/dL (0.3-1.0); BUN - UREA NITROGEN 15 mg/dL (7-25); BUN/CREATININE RATIO 18.8; CHLORIDE 102 mEq/L (98-107); CREATININE - SERUM 0.8 mg/dL (0.7-1.3); GLUCOSE 258 mg/dL (70-105); MAGNESIUM 1.8 mg/dL (1.9-2.7); POTASSIUM SERUM 4.5 mEq/L (3.5-5.1); SGOT 181 U/L (13-39); SGPT/ALT 399 U/L (7-52); SODIUM SERUM 132 mEq/L (136-145)
[2016-04-21] MEDS ORDERED: Insulin Detemir 100 units/mL 10mL Vial SUBQ ONE ×2 (12:15→23:45)
--- NOTE | 2016-04-21 16:10 | Internal Medicine Prog Note ---
Internal Medicine Subjective - Subjective Patient seen and examined:: with staff, chart reviewed Patient is:: awake, verbal, interactive Patient Complaints of:: congestion Per staff patient is:: no adverse event, noncompliant Internal Medicine Objective - Results Result Diagrams: 04/21/16 04:30 04/21/16 04:30 Recent Labs: Laboratory Last Values WBC 9.0 Th/cmm (4.8-10.8) 04/21/16 04:30 RBC 4.56 Mil/cmm (4.30-5.70) 04/21/16 04:30 Hgb 14.6 gm/dL (13.2-17.3) 04/21/16 04:30 Hct 42.4 % (39.0-49.0) 04/21/16 04:30 MCV 92.9 fl (80-99) 04/21/16 04:30 MCH 31.9 pg (26.0-30.0) H 04/21/16 04:30 MCHC Differential 34.4 pg (28.0-36.0) 04/21/16 04:30 RDW 12.0 % (11.5-20.0) 04/21/16 04:30 Plt Count 273 Th/cmm (150-400) 04/21/16 04:30 MPV 8.8 fl 04/21/16 04:30 Neutrophils % 61.1 % (40.0-80.0) 04/21/16 04:30 Lymphocytes % 34.1 % (20.0-50.0) 04/21/16 04:30 Monocytes % 4.2 % (2.0-10.0) 04/21/16 04:30 Eosinophils % 0.6 % (0.0-5.0) 04/21/16 04:30 Basophils % 0.0 % (0.0-2.0) 04/21/16 04:30 Sodium 132 mEq/L (136-145) L 04/21/16 04:30 Potassium 4.5 mEq/L (3.5-5.1) 04/21/16 04:30 Chloride 102 mEq/L (98-107) 04/21/16 04:30 Carbon Dioxide 21.0 mEq/L (21.0-31.0) 04/21/16 04:30 Anion Gap 13.5 (7.0-16.0) 04/21/16 04:30 BUN 15 mg/dL (7-25) 04/21/16 04:30 Creatinine 0.8 mg/dL (0.7-1.3) 04/21/16 04:30 Est GFR ( Amer) > 60.0 ml/min 04/21/16 04:30 Est GFR (Non-Af Amer) > 60.0 ml/min 04/21/16 04:30 BUN/Creatinine Ratio 18.8 04/21/16 04:30 Glucose 258 mg/dL (70-105) H 04/21/16 04:30 POC Glucose 306 MG/DL (70 - 105) H 04/21/16 11:42 Hemoglobin A1c % 17.0 % (4.0-6.0) H 04/16/16 18:09 Uric Acid 3.9 mg/dL (4.4-7.6) L 04/20/16 04:45 Calcium 9.0 mg/dL (8.6-10.3) 04/21/16 04:30 Phosphorus 3.7 mg/dL (2.5-5.0) 04/20/16 04:45 Magnesium 1.8 mg/dL (1.9-2.7) L 04/21/16 04:30 Total Bilirubin 0.7 mg/dL (0.3-1.0) 04/21/16 04:30 Direct Bilirubin 0.33 mg/dL (0.0-0.2) H 04/20/16 04:45 AST 181 U/L (13-39) H 04/21/16 04:30 ALT 399 U/L (7-52) H 04/21/16 04:30 Alkaline Phosphatase 90 U/L (34-104) 04/21/16 04:30 B-Natriuretic Peptide 7.0 pg/mL (5.0-100.0) 04/21/16 04:30 Total Protein 6.3 gm/dL (6.0-8.3) 04/21/16 04:30 Albumin 3.2 gm/dL (4.2-5.5) L 04/21/16 04:30 Globulin 3.1 gm/dL 04/21/16 04:30 Albumin/Globulin Ratio 1.0 (1.0-1.8) 04/21/16 04:30 Triglycerides 125 mg/dL (<150) 04/20/16 04:45 Cholesterol 170 mg/dL (<200) 04/20/16 04:45 LDL Cholesterol Direct 127 mg/dL (75-193) 04/20/16 04:45 HDL Cholesterol 34 mg/dL (23-92) 04/20/16 04:45 Tumor Marker AFP 3.8 ng/mL (0.0-8.3) 04/20/16 04:45 Vitamin B12 686 pg/mL (211-946) 04/20/16 04:45 Vitamin D 25-Hydroxy 34.4 ng/mL (30.0-100.0) 04/20/16 04:45 Folic Acid 13.8 ng/mL (>3.0) 04/17/16 04:50 Free T4 1.62 ng/dL (0.82-1.77) 04/20/16 04:45 TSH 1.33 uIU/ml (0.34-5.60) 04/17/16 04:50 Urine Source CLEAN C 04/16/16 22:30 Urine Color YELLOW 04/16/16 22:30 Urine Clarity CLEAR (CLEAR) 04/16/16 22:30 Urine pH 7.0 04/16/16 22:30 Ur Specific [place] 1.015 (1.005-1.030) 04/16/16 22:30 Urine Protein NEGATIVE mg/dL (NEGATIVE) 04/16/16 22:30 Urine Glucose (UA) 500 mg/dL (NEGATIVE) H 04/16/16 22:30 Urine Ketones TRACE mg/dL (NEGATIVE) 04/16/16 22:30 Urine Blood NEGATIVE (NEGATIVE) 04/16/16 22:30 Urine Nitrate NEGATIVE (NEGATIVE) 04/16/16 22:30 Urine Bilirubin NEGATIVE (NEGATIVE) 04/16/16 22:30 Urine Urobilinogen 0.2 E.U./dL (0.2 - 1.0) 04/16/16 22:30 Ur Leukocyte Esterase NEGATIVE (NEGATIVE) 04/16/16 22:30 Urine RBC 0-2 /hpf (0-5) H 04/16/16 22:30 Urine WBC 0-2 /hpf (0-5) 04/16/16 22:30 Ur Epithelial Cells OCCASIONAL /lpf (FEW) 04/16/16 22:30 Urine Bacteria NONE SEEN /hpf (NONE SEEN) 04/16/16 22:30 U Random Total Protein 6.0 mg/dL 04/21/16 10:00 Urine Collection Time 24 hours 04/21/16 10:00 Urine Total Volume 3200 ml 04/21/16 10:00 Urine Creatinine 45.0 mg/dl (39.0-259.0) 04/20/16 15:00 U Tot Protein 24h, Calc 192.0 mg/24 hr (0-165) H 04/21/16 10:00 - Physical Exam Vitals and I&O: Vital Signs Temp 98.1 F 04/21/16 11:00 Pulse 74 04/21/16 15:32 Resp 18 04/21/16 15:32 BP 117/71 04/21/16 11:00 Pulse Ox 95 04/21/16 15:32 Intake & Output 04/20/16 04/21/16 04/21/16 18:59 06:59 18:59 Intake Total 800 800 Output Total 1600 600 Balance -800 200 Intake: Oral 800 800 Output: Urine 1600 600 Active Medications: Current Medications Acetaminophen (Tylenol) 650 mg PO Q4HR PRN PRN Reason: Pain or Fever >101 Stop: 06/15/16 20:54 Last Admin: 04/19/16 03:50 Dose: 650 mg Al Hydrox/Mg Hydrox/Simethicone (Maalox) 30 ml PO Q6HR PRN PRN Reason: Constipation Stop: 06/15/16 20:54 Albuterol Sulfate (Albuterol 2.5mg/3ml Neb Ud) 2.5 mg HHN QIDRT [facility] Stop: 06/15/16 20:59 Last Admin: 04/21/16 15:32 Dose: Not Given Aspirin (Ecotrin) 81 mg PO DAILY [facility] Stop: 06/16/16 08:59 Last Admin: 04/21/16 08:36 Dose: 81 mg Carvedilol (Coreg) 6.25 mg PO BID [facility] Stop: 06/16/16 12:45 Last Admin: 04/21/16 08:36 Dose: 6.25 mg Clonidine HCl (Catapres) 0.1 mg PO Q6HR PRN PRN Reason: SBP GREATER THAN 160 Stop: 06/15/16 20:54 Furosemide (Lasix) 40 mg IVP DAILY [facility] Stop: 06/17/16 08:59 Last Admin: 04/21/16 08:37 Dose: 40 mg Glipizide (Glucotrol) 20 mg PO BID [facility] Stop: 06/19/16 14:00 Last Admin: 04/21/16 08:38 Dose: 20 mg Guaifenesin (Robitussin) 200 mg PO Q4HR PRN PRN Reason: Cough or Congestion Stop: 06/15/16 20:54 Last Admin: 04/19/16 03:50 Dose: 200 mg Heparin Sodium (Porcine) (Heparin) 5,000 units SUBQ Q12HR [facility] Stop: 06/15/16 20:59 Last Admin: 04/21/16 08:39 Dose: 5,000 units Insulin Aspart (Novolog) 0 units SUBQ ACHS CHARLY PRN Reason: Protocol Stop: 06/15/16 20:59 Last Admin: 04/21/16 12:13 Dose: 6 units Insulin Detemir (Levemir Insulin) 35 units SUBQ DAILY [facility] PRN Reason: Protocol Stop: 06/21/16 08:59 Ipratropium Lawrence (Atrovent Neb 0.5mg/2.5ml) 0.5 mg HHN QIDRT [facility] Stop: 06/15/16 20:59 Last Admin: 04/21/16 15:32 Dose: Not Given Lisinopril (Zestril) 10 mg PO DAILY [facility] Stop: 06/16/16 12:45 Last Admin: 04/21/16 08:39 Dose: 10 mg Meclizine HCl (Antivert) 25 mg PO DAILY PRN PRN Reason: Nausea / Vomiting Stop: 06/15/16 20:54 Miscellaneous (Vte Chemical Prophylaxis Screen/ Admission) 1 ea [facility] PRN PRN PRN Reason: PROTOCOL Stop: 06/16/16 13:29 Ondansetron HCl (Zofran) 4 mg IV Q8H PRN PRN Reason: Nausea / Vomiting Stop: 06/15/16 20:54 Potassium Chloride (Klor-Con) 10 meq PO DAILY [facility] Stop: 06/16/16 17:59 Last Admin: 04/21/16 08:39 Dose: 10 meq Zolpidem Tartrate (Ambien) 10 mg PO HS PRN PRN Reason: Insomnia Stop: 06/15/16 20:54 Last Admin: 04/20/16 20:14 Dose: 10 mg General: alert HEENT: NC/AT, PERRLA Neck: Supple, No JVD Lungs: congested Cardiovascular: RRR, Normal S1, Normal S2 Abdomen: soft non-tender, globular, distended Extremities: edema Neurological: no change Internal Medicine Assmt/Plan - Assessment Assessment: UNCONTROLLED DIABETES-NON COMPLIANT COPD EXACERBATION CHF MORBID OBESITY - Plan Plan: cont on ivf insulin being adjusted endocrine follow up dietary consult diego salomon
[2016-04-22] MEDS: INSULIN ASPART, RECOMBINANT 100 UNITS/ML SUBQ SCH ×2 (06:38→12:38)
[2016-04-22] MEDS: Albuterol Nebulizer 2.5mg/3mL HHN SCH ×2 (08:17→12:14)
[2016-04-22] MEDS: Ipratropium Neb 0.5 mg/2.5 mL UD HHN SCH ×2 (08:17→12:14)
[2016-04-22] MEDS ORDERED: Insulin Detemir 100 units/mL 10mL Vial SUBQ SCH ×2 (09:00)
[2016-04-22] MEDS: Potassium Chloride 10 mEq ER Tab PO SCH (09:03)
--- NOTE | 2016-05-20 00:29 | Discharge Summary ---
DATE OF ADMISSION: 04/16/2016 DATE OF DISCHARGE: 04/21/2016 FINAL DIAGNOSES: Uncontrolled diabetes, chronic obstructive pulmonary disease exacerbation, hypernatremia, , congestive heart failure exacerbation. HISTORY OF PRESENT ILLNESS: A 60-year-old male, direct admission from [facility]. According to the patient, he has been having a 2-day history of shortness of breath associated with productive cough. The patient states that lately he has been drinking a lot of fluids. The patient states that he was seen by his PCP last week and was referred to [facility]. PHYSICAL EXAMINATION: GENERAL: The patient is well developed, well nourished, no acute distress. VITAL SIGNS: Stable. HEENT: Normocephalic, atraumatic. NECK: Supple. No mass. LUNGS: Clear. CARDIOVASCULAR: Regular rate and rhythm, no murmurs or gallops. ABDOMEN: Soft, nontender, nondistended. HOSPITAL COURSE: During the hospital stay, the patient was admitted to the telemetry unit. The patient had a chest x-ray done and impression was no focal airspace consolidation identified. The patient had a consultation with Dr. Rod Somers. A 2D echocardiogram was ordered. The patient was kept on low-calorie and low-cholesterol diet. Also Dr. Mendoza was on the case due to the patient's uncontrolled diabetes. The patient's 2D echo results were the patient had ejection fraction of 22%. Dr. Mendoza adjusted the patient's insulin and Lantus. The patient had a dietary consult. The patient was educated on the importance of compliance to diet, insulin was adjusted and supervisor pipe joints was following the patient as well as dietitian. The patient later then stabilized and was stable for discharge. CONDITION UPON DISCHARGE: Fair. DISPOSITION: The patient is going home. Educated the patient the importance of following up with PCP in 1 week and to comply with diabetes. JOB# [id number]
== END 2016-04-22 15:00 | disposition home or self-care (01) | DRG 140 ==
LOC: TELE 16:20 → MSI 04-21 18:30
PROVIDERS: ADMIT Internal Medicine; ATTEND Internal Medicine
DX: J44.1 Chronic obstructive pulmonary disease with (acute) exacerbation (principal); I50.23 Acute on chronic systolic (congestive) heart failure; I42.9 Cardiomyopathy, unspecified; E66.01 Morbid (severe) obesity due to excess calories; E87.1 Hypo-osmolality and hyponatremia; E11.65 Type 2 diabetes mellitus with hyperglycemia; B19.20 Unspecified viral hepatitis C without hepatic coma; I11.0 Hypertensive heart disease with heart failure; F17.210 Nicotine dependence, cigarettes, uncomplicated; Z91.14 Patient's other noncompliance with medication regimen; Z79.4 Long term (current) use of insulin; Z68.39 Body mass index [BMI] 39.0-39.9, adult
CPT/HCPCS: 36415-UA; 71010-TC; 80048-TC; 80053-TC; 80061-TC; 80076-TC; 81001-TC; 82105-90; 82306-90; 82533-90; 82570-TC; 82607-90; 82746-90; 82948-90; 83036-90; 83735-TC; 83880-TC; 84100-TC; 84156-TC; 84439-90; 84443-TC; 84550-TC; 85025-TC; 90779; 93005; 93307-TC; 94640; 94760; J1644; J1815; J1940; J7030; J7613; Z7610